=== PATIENT | male | born 1975 | race Caucasian/White ===

== ENCOUNTER 2017-09-20 09:07 | Emergency (ER) | payer MEDICAID ==
[~2017-09-20] VITALS: Ht 167.6 cm; Wt 75.7 kg
[2017-09-20 09:19] VITALS: BP 138/78
[2017-09-20 09:48] LABS: APPEARANCE,URINE HAZY (CLEAR); BILIRUBIN,URINE NEGATIVE (NEGATIVE); BLOOD, URINE TRACE-L (NEGATIVE); COLOR,URINE YELLOW (YELLOW); LEUKOCYTE ESTERASE ,URINE 3+ (NEGATIVE); NITRITE, URINE NEGATIVE (NEGATIVE); PH,URINE 7.5 (5.0-9.0); UGLUCOSE NEGATIVE (NEGATIVE)
[2017-09-20 10:02] LABS: RBC,URINE NONE SEEN /HPF (0-5); WBC,URINE TOO MANY TO COUNT /HPF (0-5)
[2017-09-20] MEDS: cefTRIAXone 250 MG in LIDOCAINE MPF 1% - **ER/OR** 0.9 ML IM ONE (10:24)
[2017-09-20] MEDS: AZITHROMYCIN 250 MG TAB PO ONE (10:25)
[2017-09-20 11:08] VITALS: BP 133/82
[2017-09-22 06:19] LABS: CHLAMYDIA TRACHOMATIS AMP DNA Negative (Negative)
== END 2017-09-20 11:07 | disposition home or self-care (01) ==
LOC: MED 09:07 → CANBEDREQ 09:32 → MED 11:07
DX: A64 Unspecified sexually transmitted disease (principal); S91.311D Laceration without foreign body, right foot, subsequent encounter; X58.XXXD Exposure to other specified factors, subsequent encounter
CPT/HCPCS: 36415; 73630; 81001; 86592; 86702; 87086; 87491; 96372; 99285; J0696; J2001